=== PATIENT | female | born 1930 | race Hispanic/Latino ===

== ENCOUNTER 2017-04-24 09:46 | Outpatient (CLI) | payer MEDICARE ==
--- NOTE | 2017-04-24 14:43 | Mammography Report ---
BILATERAL DIGITAL SCREENING MAMMOGRAM with CAD : 04/24/17 09:46:00 CLINICAL: Routine screening. COMPARISON:04/05/16 and 04/02/15 FINDINGS: The breasts are heterogeneously dense, which may obscure small masses. No mass, architectural distortion or suspicious calcifications. IMPRESSION: No mammographic evidence of malignancy. BI-RADS CATEGORY: 2 -- Benign RECOMMENDATION: Routine mammographic screening in one year. COMMENT: Patient follow-up letters are generated by our [employer] application.
== END 2017-04-24 09:47 | disposition home or self-care (01) ==
LOC: SPVWC 09:46
PROVIDERS: ATTEND Internal Medicine
DX: Z12.31 Encounter for screening mammogram for malignant neoplasm of breast (principal)
CPT/HCPCS: 77067; G0202

== ENCOUNTER 2018-04-25 09:05 | Outpatient (CLI) | payer MEDICARE ==
--- NOTE | 2018-04-25 14:43 | Mammography Report ---
BILATERAL DIGITAL SCREENING MAMMOGRAM with CAD : 04/25/18 09:05:00 CLINICAL: Routine screening. COMPARISON:04/24/17 FINDINGS: The breasts are heterogeneously dense, which may obscure small masses. No mass, architectural distortion or suspicious calcifications. IMPRESSION: No mammographic evidence of malignancy. BI-RADS CATEGORY: 2 -- Benign RECOMMENDATION: Routine mammographic screening in one year. COMMENT: Patient follow-up letters are generated by our [employer] application.
== END 2018-04-25 09:06 | disposition home or self-care (01) ==
LOC: SPVWC 09:05
PROVIDERS: ATTEND Internal Medicine
DX: Z12.31 Encounter for screening mammogram for malignant neoplasm of breast (principal)
CPT/HCPCS: 77067